=== PATIENT | female | born 1985 ===

== ENCOUNTER 2025-03-15 08:00 | Day surgery (SDC) | payer OTHER ==
[2025-03-05 11:50] VITALS: BP 129/63
[~2025-03-15] VITALS: Ht 165.1 cm; Wt 61.7 kg
[~2025-03-15 08:00] MED LIST: LEVO-T75 MCG PO
[2025-03-15] MEDS ORDERED: POVIDONE-IODINE 118 ML BOTT TOP ONE (10:22)
[2025-03-15] MEDS ORDERED: SUGAMMADEX SODIUM 200 MG/2 ML VIAL IV ONE (12:07)
[2025-03-15] MEDS ORDERED: NEURONTIN300 MG PO (12:39)
[2025-03-15] MEDS ORDERED: IBU800 MG PO (12:39)
== END 2025-03-15 15:55 | disposition home or self-care (01) ==
LOC: CIR.AMB 08:00
PROVIDERS: ATTEND Obstetrics & Gynecology Gynecology
DX: D27.0 Benign neoplasm of right ovary (principal); D28.2 Benign neoplasm of uterine tubes and ligaments